=== PATIENT | male | born 1985 | race American Indian/Alaskan Native ===

== ENCOUNTER 2020-03-31 22:30 | Emergency (ER) | payer OTHER ==
[2020-03-31 23:46] VITALS: BP 108/55
--- NOTE | 2020-04-01 00:22 | XRay Report ---
LEFT SHOULDER 3 VIEWS INDICATION / CLINICAL INFORMATION: left shoulder pain COMPARISON: None available. FINDINGS: BONES / JOINT(S): No acute fracture or subluxation. No significant arthritis. SOFT TISSUES: No significant abnormality. ADDITIONAL FINDINGS: None. Signer Name: Blake Reeder MD Signed: 04/01/2020 12:18 AM Workstation Name: [id number]
== END 2020-04-01 02:40 | disposition left against medical advice (07) ==
LOC: ED 22:30
DX: M25.512 Pain in left shoulder (principal); R51 Headache; Z53.21 Procedure and treatment not carried out due to patient leaving prior to being seen by health care provider; V49.49XA Driver injured in collision with other motor vehicles in traffic accident, initial encounter; Y93.89 Activity, other specified; Y92.488 Other paved roadways as the place of occurrence of the external cause; Y99.8 Other external cause status